=== PATIENT | female | born 1945 | race Two or more races ===

== ENCOUNTER 2020-03-19 08:22 | Outpatient (CLI) | payer OTHER | END 2020-03-19 08:23 | disposition home or self-care (01) | LOC: PPH VACUNA 08:22 | PROVIDERS: ATTEND Emergency Medicine Pediatric Emergency Medicine | DX: Z23 Encounter for immunization (principal) ==

== ENCOUNTER → 2020-04-09 | Outpatient (CLI) | payer OTHER | END | disposition home or self-care (01) | LOC: PPH VACUNA | PROVIDERS: ATTEND Emergency Medicine Pediatric Emergency Medicine | DX: Z23 Encounter for immunization (principal) ==